=== PATIENT | female | born 1965 | race Two or more races ===

== ENCOUNTER → 2017-02-13 | Outpatient (CLI) | payer OTHER ==
--- NOTE | 2017-02-13 17:25 | RAD ---
Pelvic ultrasound, 02/13/2017: History: Pelvic pain Transabdominal and transvaginal scans were obtained. The uterus is surgically absent. The ovaries could not be visualized. No pelvic mass or unusual fluid collection is seen. IMPRESSION: 1. Status post hysterectomy. 2. Nonvisualization of the ovaries.
== END | disposition home or self-care (01) ==
LOC: US 13:35
PROVIDERS: ATTEND Family Medicine
DX: R10.2 Pelvic and perineal pain (principal); Z90.710 Acquired absence of both cervix and uterus
CPT/HCPCS: 76830; 76856

== ENCOUNTER → 2020-12-08 | Outpatient (CLI) | payer OTHER ==
--- NOTE | 2020-12-09 08:39 | RAD ---
CT NECK SOFT TISSUE WITHOUT CONTRAST History: THROAT SYMPTOMS. VOICE HOARSENESS. SENSATION OF FULL NECK. Comparison: None. Technique: Noncontrast CT of the neck. Findings: Mucosa: No mass in the nasal cavity, nasopharynx, oral cavity, oropharynx, larynx, hypopharynx, or pr oximal trachea/esophagus. Oral cavity is obscured by dental artifact. Glands: Normal bilateral parotid, submandibular, and thyroid glands. Nodes: No pathologically enlarged or necrotic cervical lymph nodes. Vessels: Vascular structures are patent. No carotid space mass. Bones: Mild cervical facet degenerative changes. Other: No suspicious lesion in the cervical spine or lung apices. Impression: 1. No suspicious mass or adenopathy in the neck. ------ Exposure: One or more of the following individualized dose reduction techniques were utilized for thi s examination: 1. Automated exposure control 2. Adjustment of the mA and/or kV according to patient size 3. Use of iterative reconstruction technique. Electronically signed by: Petros Adams MD (12/09/2020 8:36 AM) [facility]
== END ==
LOC: CT 09:40
PROVIDERS: ATTEND Nurse Practitioner Primary Care
DX: R68.89 Other general symptoms and signs (principal); R49.0 Dysphonia; H93.8X1 Other specified disorders of right ear
CPT/HCPCS: 70490